=== PATIENT | male | born 1995 | race Caucasian/White ===

== ENCOUNTER 2024-01-26 04:16 | Emergency (ER) | payer SELFPAY ==
[~2024-01-26] VITALS: Ht 162.6 cm; Wt 80.0 kg
[2024-01-26 04:24] VITALS: BP 155/96; PULSE 100; RESP 18; TEMP 98.3; O2SAT 95
[2024-01-26] MEDS ORDERED: ALBU90AE INH (06:14)
[2024-01-26] MEDS ORDERED: P20 MT (06:14)
== END 2024-01-26 07:30 | disposition home or self-care (01) ==
LOC: ER 04:27
DX: J45.901 Unspecified asthma with (acute) exacerbation (principal); E11.9 Type 2 diabetes mellitus without complications; I10 Essential (primary) hypertension; Z98.890 Other specified postprocedural states
CPT/HCPCS: 71045; 99283